=== PATIENT | female | born 1980 | race Caucasian/White ===

== ENCOUNTER 2017-10-19 19:04 | Emergency (ER) | payer OTHER, SELFPAY | END 2017-10-19 19:42 | disposition home or self-care (01) | PROVIDERS: Emergency Provider Nurse Practitioner Family; Family Provider Family Medicine; Visit Provider Nurse Practitioner Family | DX: J32.0 Chronic maxillary sinusitis (principal); Z88.3 Allergy status to other anti-infective agents; Z88.8 Allergy status to other drugs, medicaments and biological substances | CPT/HCPCS: 87804; 99201 ==

== ENCOUNTER → 2017-11-24 15:50 | Outpatient (CLI) | payer OTHER, SELFPAY ==
[2017-11-24 16:13] LABS: Basophils % 0.6 % (0.1-2.0); Eosinophils # 0.1 K/mm3 (0.0-0.4); Eosinophils % 1.4 % (0.1-12.0); Hematocrit 44.5 % (37.0-47.0); Lymphocytes # 1.7 K/mm3 (0.7-4.5); Lymphocytes % 25.1 K/mm3 (10-50); Mean Corpuscular HGB Conc 33.6 g/dL (31.8-35.4); Mean Corpuscular Hemoglobin 30.1 pg (27.0-31.2); Mean Corpuscular Volume 89.5 fl (81-99); Monocytes # 0.4 K/mm3 (0.1-1.0); Monocytes % 5.7 % (1.7-9.3); Neutrophils # 4.5 K/mm3 (1.8-7.8); Neutrophils % 67.2 % (37.0-80.0); Platelet Count 293 K/mm3 (142-424); Red Blood Count 4.97 M/mm3 (4.20-5.40); Red Cell Distribution Width 12.8 % (11.5-17.5); White Blood Count 6.7 K/mm3 (4.8-10.8)
[2017-11-24 19:31] LABS: Alanine Aminotransferase 27 U/L (12-78); Albumin Level 4.2 gm/dL (3.4-5.0); Albumin/Globulin Ratio 1.3 (1.1-1.8); Alkaline Phosphatase 59 U/L (46-116); Anion Gap 12.1 mEq/L (5-15); Aspartate Amino Transferase 21 U/L (15-37); Bilirubin,Total 0.3 mg/dL (0.2-1.0); Blood Urea Nitrogen 11 mg/dL (7-18); Calcium 8.8 mg/dL (8.5-10.1); Carbon Dioxide 28 mmol/L (21.0-32.0); Chloride 102 mmol/L (98-107); Creatinine,Serum 0.82 mg/dL (0.55-1.02); Estimated Glomerular Filt Rate 79 ml/min (>60); GFR (African American) 96 ML/MIN (>60); Globulin 3.2 gm/dl (1.3-3.2); Glucose 71 mg/dL (74-106); Potassium 4.1 mmoL/L (3.5-5.1); Sodium 138 mmol/L (136-145); Thyroid Stimulating Hormone 3.45 uIU/ml (0.358-3.740); Total Protein,Serum 7.4 gm/dL (6.4-8.2)
== END ==
PROVIDERS: PCP Family Medicine; Visit Provider Physician Assistant
DX: R07.9 Chest pain, unspecified (principal); R53.83 Other fatigue; I10 Essential (primary) hypertension
CPT/HCPCS: 36415; 80053; 84443; 85025

== ENCOUNTER → 2019-10-17 10:54 | Outpatient (CLI) | payer OTHER, SELFPAY ==
--- NOTE | 2019-10-17 10:54 | US_ITS ---
PROCEDURE: US TRANSVAGINAL CLINICAL INDICATION: US T/V- Heavy Periods Pre ablation COMPARISON: No exams were available for comparison FINDINGS: The uterus is 9 x 4 x 5 cm with a combined endometrial thickness of 12 mm. Right ovary is 4 x 3 cm. Left ovary is 3 x 3 cm. There is a 1 cm nabothian cyst. No adnexal mass or cul-de-sac fluid. IMPRESSION: Endometrial thickness upper limits of normal with small nabothian cyst otherwise negative Dictated by: Ramo Maciel MD 10/18/2019 06:57 Electronically signed by Ramo Maciel MD in [place] 10/18/2019 06:57
== END ==
PROVIDERS: PCP Family Medicine; Visit Provider Nurse Practitioner Obstetrics & Gynecology
DX: N92.0 Excessive and frequent menstruation with regular cycle (principal)
CPT/HCPCS: 76830

== ENCOUNTER → 2019-11-16 16:58 | Outpatient (CLI) | payer OTHER, SELFPAY ==
[2019-11-16 17:15] LABS: Basophils % 0.5 % (0.1-2.0); Eosinophils # 0.1 K/mm3 (0.0-0.4); Eosinophils % 2.3 % (0.1-12.0); Hematocrit 43.2 % (37.0-47.0); Hemoglobin 14.4 g/dL (12.2-16.2); Lymphocytes # 1.7 K/mm3 (0.7-4.5); Lymphocytes % 28.3 % (10-50); Mean Corpuscular HGB Conc 33.4 g/dL (31.8-35.4); Mean Corpuscular Hemoglobin 30.7 pg (27.0-31.2); Mean Corpuscular Volume 91.9 fl (81-99); Mean Platelet Volume 7.9 fl (7.4-10.4); Monocytes # 0.3 K/mm3 (0.1-1.0); Monocytes % 5.6 % (1.7-9.3); Neutrophils # 3.9 K/mm3 (1.8-7.8); Neutrophils % 63.2 % (37.0-80.0); Platelet Count 323 K/mm3 (142-424); Red Cell Distribution Width 13.1 % (11.5-17.5); White Blood Count 6.2 K/mm3 (4.8-10.8)
[2019-11-16 17:18] LABS: Urine Pregnancy, HCG Qual. Negative (Negative)
[2019-11-16 18:29] LABS: Blood Urea Nitrogen 10 mg/dL (7-18); Calcium 8.8 mg/dL (8.5-10.1); Carbon Dioxide 29 mmol/L (21.0-32.0); Chloride 104 mmol/L (98-107); Creatinine,Serum 0.86 mg/dL (0.55-1.02); Estimated Glomerular Filt Rate 74 ml/min (>60); GFR (African American) 90 ML/MIN (>60); Glucose 68 mg/dL (74-106); Sodium 138 mmol/L (136-145)
== END ==
PROVIDERS: Visit Provider Nurse Practitioner Obstetrics & Gynecology
DX: Z01.818 Encounter for other preprocedural examination (principal); N92.0 Excessive and frequent menstruation with regular cycle
CPT/HCPCS: 36415; 80048; 81025; 85025

== ENCOUNTER → 2020-11-19 13:46 | Outpatient (CLI) | payer OTHER, SELFPAY ==
[2020-11-20 09:03] LABS: Covid-19 Nasal PCR Sendout P&C POSITIVE
== END ==
PROVIDERS: PCP Family Medicine; Visit Provider Nurse Practitioner
DX: U07.1 COVID-19 (principal)
CPT/HCPCS: U0004

== ENCOUNTER → 2023-06-11 15:26 | Outpatient (CLI) | payer OTHER, SELFPAY ==
--- NOTE | 2023-06-11 15:32 | MM_ITS ---
PROCEDURE INFORMATION: Exam: MG Bilateral Screening 3D Mammography Exam date and time: 06/11/2023 3:32 PM Age: 42 years old Clinical indication: Baseline screening mammogram TECHNIQUE: Imaging protocol: Bilateral Screening tomosynthesis and 2D mammography including computer-aided detection (CAD) when performed. COMPARISON: No relevant prior studies available. FINDINGS: MAMMOGRAPHY: Breast composition: There are scattered areas of fibroglandular density. Mass: None. Architectural distortion: No new or suspicious architectural distortion. Calcifications: No new or suspicious calcifications are present Asymmetric density: No new or suspicious asymmetric density is present Skin thickening: None. Axillary adenopathy: None. IMPRESSION: No mammographic evidence of malignancy. Recommend annual screening mammography unless otherwise clinically indicated. ASSESSMENT: BI-RADS category 1: Negative
== END ==
PROVIDERS: PCP Family Medicine; Visit Provider Nurse Practitioner Obstetrics & Gynecology
DX: Z12.31 Encounter for screening mammogram for malignant neoplasm of breast (principal)
CPT/HCPCS: 77063; 77067

== ENCOUNTER 2024-06-08 08:55 | Outpatient (CLI) | payer OTHER, SELFPAY ==
--- NOTE | 2024-06-08 08:56 | US_ITS ---
FINAL REPORT TECHNIQUE: Ultrasound images of the kidneys and bladder were obtained. CLINICAL HISTORY: I10 - Essential (primary) hypertension FINDINGS: The right kidney measures 10.7 cm in length. It is normal in echogenicity. There is no hydronephrosis. The left kidney measures 10.7 cm in length. It is normal in echogenicity. There is no hydronephrosis. The spleen is unremarkable. IMPRESSION: Unremarkable exam. Reviewed, Interpreted and Dictated by Tung Winn III, MD Transcribed by Ewa Webster Authenticated and [facility]
--- NOTE | 2024-06-08 09:05 | CA_ITS ---
FINAL REPORT TECHNIQUE: Grayscale, color Doppler and duplex Doppler ultrasound of the kidneys, aorta and renal arteries was performed. Multiple velocities were measured. CLINICAL HISTORY: Hypertension COMPARISON: None FINDINGS: Aorta velocity: 180.5 cm/sec Right kidney: 11 cm. No evidence of hydronephrosis or mass. Right intrarenal RI: 0.73 Right renal artery velocity: 192 cm/sec. Right RAR (Renal artery-Aortic Ratio): 1.06 Left Kidney: 11.4 cm. No evidence of hydronephrosis or mass. Left intrarenal RI: 0.64 Left renal artery velocity: cm/sec. Left RAR (Renal Artery-Aortic Ratio): 1.09 IMPRESSION: Less than 60% renal artery stenosis bilaterally. CT angiogram or postcontrast MR angiogram would be more sensitive for evaluation of possible renal artery stenosis. Reviewed, Interpreted and Dictated by Tung Winn III, MD Transcribed by Crystal Valladares Authenticated and [facility]
[2024-06-08 10:05] LABS: Basophils # 0.1 K/mm3 (0-0.2); Basophils % 1.1 % (0.1-2.0); Eosinophils # 0.2 K/mm3 (0.0-0.4); Hematocrit 45.2 % (37.0-47.0); Hemoglobin 15.4 g/dL (12.2-16.2); Lymphocytes # 1.2 K/mm3 (0.7-4.5); Lymphocytes % 26.1 % (10-50); Mean Corpuscular HGB Conc 34.1 g/dL (31.8-35.4); Mean Corpuscular Hemoglobin 31.9 pg (27.0-31.2); Mean Corpuscular Volume 93.7 fl (81-99); Mean Platelet Volume 8.1 fl (7.4-10.4); Monocytes # 0.2 K/mm3 (0.1-1.0); Monocytes % 5.4 % (1.7-9.3); Neutrophils # 2.8 K/mm3 (1.8-7.8); Neutrophils % 63.4 % (37.0-80.0); Platelet Count 343 K/mm3 (142-424); Red Blood Count 4.82 M/mm3 (4.20-5.40); Red Cell Distribution Width 13.5 % (11.5-17.5); White Blood Count 4.5 K/mm3 (4.8-10.8)
[2024-06-08 10:44] LABS: Albumin Level 4.4 g/dl (3.5-5.0); Chloride 103 mmol/L (98-107)
[2024-06-08 10:45] LABS: Potassium 3.7 mmoL/L (3.5-5.1); Sodium 139 mmol/L (136-145)
[2024-06-08 10:47] LABS: Alanine Aminotransferase 26 U/L (12-78); Anion Gap 8.7 mEq/L (5-15); Aspartate Amino Transferase 32 U/L (14-36); Bilirubin,Unconjugated 0.3 mg/dL (0.0-1.1); Blood Urea Nitrogen 12 mg/dl (7-17); Carbon Dioxide 31 mmol/L (22.0-30.0); Estimated Glomerular Filt Rate 61 ml/min (>60); GFR (African American) 74 ML/MIN (>60)
[2024-06-08 10:48] LABS: Alkaline Phosphatase 51 U/L (38-126); Bilirubin,Direct 0.3 mg/dl (0.0-0.4); Bilirubin,Indirect 0.3 mg/dL (0.0-0.9); Bilirubin,Total 0.6 mg/dl (0.2-1.3); Calcium 8.9 mg/dl (8.4-10.2); Cholesterol 153 mg/dl (140-200); Glucose 102 mg/dl (74-100); HDL Cholesterol 38 mg/dl (40-60); Magnesium 1.8 mg/dl (1.6-2.3); Total Protein,Serum 7.1 g/dl (6.3-8.2); Triglycerides 113 mg/dl (30-150); VLDL Cholesterol 23 mg/dL (0-40)
[2024-06-08 10:59] LABS: Direct LDL Cholesterol 86.44 mg/dL (100-129)
[2024-06-08 11:17] LABS: Thyroid Stimulating Hormone 1.98 uIU/mL (0.465-4.68)
[2024-06-13 14:09] LABS: Dopamine, Plasma < 30 pg/mL (0-48); Epinephrine, Plasma 20 pg/mL (0-62); Norepinephrine, Plasma 836 pg/mL (0-874)
[2024-06-20 18:09] LABS: Metanephrine Plasma < 25.0 pg/mL (0.0-88.0); Normetanephrine Plasma 77.6 pg/mL (0.0-218.9)
[2024-06-22 15:42] LABS: Renin Activity, Plasma 44.882
== END 2024-06-08 23:59 | disposition home or self-care (01) ==
LOC: RAD 08:56
PROVIDERS: Nurse Practitioner Family; PCP Physician Assistant; Visit Provider Physician Assistant
DX: I10 Essential (primary) hypertension (principal)
CPT/HCPCS: 36415; 76770; 80048; 80061; 80076; 82088; 82384; 83735; 83835; 84244; 84439; 84443; 85025; 93976

== ENCOUNTER 2024-06-10 11:06 | Outpatient (CLI) | payer OTHER, SELFPAY ==
[2024-06-17 04:44] LABS: Metanephrine, U,24hr 49 ug/24 hr (36-209); Metanephrine, Ur 81 ug/L (Undefined); Normetanephr.,U,24h 183 ug/24 hr (131-612); Normetanephrine, Ur 305 ug/L (Undefined)
[2024-06-17 09:10] LABS: Dopamine, Ur, 24hr 123 ug/24 hr (0-510); Dopamine, Urine 205 ug/L (Undefined); Epinephrine, U, 24hr <2 ug/24 hr (0-20); Epinephrine, Urine <3 ug/L (Undefined); Norepinephrine, Ur 43 ug/L (Undefined); Norepinephrine,U,24h 26 ug/24 hr (0-135); VMA, Urine 3.4 mg/L (Undefined)
== END 2024-06-10 23:59 | disposition home or self-care (01) ==
LOC: LAB.DROPOF 11:06
PROVIDERS: PCP Family Medicine; Visit Provider Nurse Practitioner Family
DX: I10 Essential (primary) hypertension (principal)
CPT/HCPCS: 82384; 83835; 84585

== ENCOUNTER 2024-07-12 07:35 | Outpatient (CLI) | payer OTHER, SELFPAY ==
--- NOTE | 2024-07-12 07:35 | NM_ITS ---
APPROVED REPORT Exam: Nuclear Stress Test Indication: Fatigue, HTN, Family history Patient Location: Outpatient Stress Tech: Geeta Yancey NM Tech:Sofi Peralta, ARRT, RT (R)(N) Ht: 5 ft 8 in Wt: 320 lbs Bra Size: 44C HR: 62 bpm BP: 153/75 mmHg BSA: 2.50 m2 TID: 1.50 BMI: 48.6 History: Fatigue, HTN, Family history Procedure: Patient received 0.4 mg of intravenous Lexiscan, resting heart rate 62 bpm, resting blood pressure 153/75 mmHg, with Lexiscan maximum heart rate achieved was 98 bpm which is % of the maximum predicted heart rate and blood pressure was 176/104 mmHg. With Lexiscan, patient denied any complaint of chest pain. Cardiac Stress and Resting SPECT Images: Cardiac Stress and Resting SPECT images were obtained using technetium 99m Myoview 32.1 mCi stress and 10.22 mCi at rest. Technically difficult study due to significant soft tissue overlap with the cardiac borders. This may affect the diagnostic interpretation of the study findings. Resting and stress imaging in supine positions demonstrate a medium sized, moderate, fixed perfusion defect in the anterior LV wall. This is no longer visualized with prone stress imaging. Findings are suggestive of soft tissue attenuation. There is increase in transient ischemic dilatation ratio (TID 1.50), suggestive of possible multivessel disease or balanced ischemia. Gated imaging demonstrates normal global and regional LV systolic function. LVEF is calculated at 61%. Conclusion: Soft tissue attenuation is present. No clear evidence of fixed or reversible perfusion defects. Increase in transient ischemic dilatation ratio (TID 1.50), suggestive of possible multivessel disease or balanced ischemia. Gated imaging demonstrates normal global and regional LV systolic function. LVEF is calculated at 61% In the setting of young age, presence of TID, and normal LV function, further evaluation noninvasively with CCTA suggested prior to proceeding with invasive coronary angiography. Electronically signed by : Mine Almeida MD 07/13/2024 12:06:40
--- NOTE | 2024-07-12 07:35 | CA_ITS ---
APPROVED REPORT Exam: Pharmacologic Technologist: Geeta Fletcher, Ht: 5 ft 8 in Wt: 318 lbs BSA: 2.49 m2 HR: 60 bpm BP: 153/75 mmHg Medical History Medications: Amlodipine,,,,, Hydralazine,,,,, Propranolol,,,,, Valsartan,,,,, CHlorthalidone,,,,, Potassium Chloride ER,,,,, Stress Test Details Test: LEXISCAN Reason for pharmacologic stress test: physical limitation. HR Resting HR: 62 bpm Max Heart Rate (APMHR): 179 bpm Max HR Achieved: 98 bpm Target HR (85% APMHR): 152 bpm % of APMHR: 55 Recovery HR: 78 bpm BP Resting BP: 153.0/75.0 mmHg Max BP: 176.0/104.0 mmHg Recovery BP: 176.0/104.0 mmHg ECG Resting ECG: SR Stress ECG: No significant ST changes Arrhythmia: PVCs Clinical Exercise duration: 04:00 min Highest Stage Achieved: Stress ECG Conclusion Symptoms: Chest pain, Dyspnea, nausea. Arrhythmias/Ectopy: PVC ST-T Changes: No significant ST changes Conclusion: EKG unremarkable, normal Lexiscan infusion. Myoview images reported separately. Test Summary REST . . . . . . . Resting REST 01:35 . . 62 . 153/ 75 . . Stage 1 . . . . . . . Myoview Injected Stage 1 01:00 . . 90 . . . . Stage 2 01:00 . . 85 . . . . Stage 3 01:00 . . 80 . 155/ 76 . . Stage 4 01:00 . . 78 . . . Stop exercise at 04:00 RECOVERY 01:00 . . 78 . . . . RECOVERY 02:00 . . 78 . 154/ 87 . . RECOVERY 03:00 . . 71 . 154/ 87 . . RECOVERY 04:00 . . 72 . 168/106 . . RECOVERY 04:47 . . 79 . 176/104 . . Electronically signed by : Mine Almeida MD 07/13/2024 12:04:43
--- NOTE | 2024-07-12 07:35 | CA_ITS ---
APPROVED REPORT EXAM: Comprehensive 2D, Doppler, and color-flow Echocardiogram Regional Sales Leader: Isabella Perez RVT Ht: 5 ft 8 in Wt: 318lbs BSA: 2.49 BP: 126/67 mmHg Indications: SOA,HTN,EDEMA,CAD,EX SMOKER 2D Dimensions LA Volume 73.50 mL LA Volume Index 29.52 mL/m2 (M/F) 16-34 M-Mode Dimensions RVDd 2.68 cm (0.9-2.6) LA Diam 3.39 cm (1.9-4.0) LVDd 4.38 cm (3.5-5.7) LVDs 3.13 cm (3.5-5.7) IVSd 0.89 cm (0.6-1.1) PWd 0.76 cm (0.6-1.1) EF (Teich) 55.30% FS 28.50% EDV (Teich) 86.80 mL TAPSE 2.82 (<1.7) ESV (Teich) 38.80 mL LV Diastology E Decel Time 150 (160-240 msec) E/A Ratio 1.4 Aortic Valve KAIT Index 1.24 cm2/m2 AoV Peak Lopez. 156.0 (50-130 cm/s) AO Peak GR. 9.80 mmHg AO Mean GR. 4.40 (<5 mmHg) AO VTI 33.4 (18-25 cm) KAIT (VTI) 3.15 (2.5-4.5 cm2) Mitral Valve MV E Max Lopez. 104.0 (40-130 cm/s) MV A Velocity 76.0 (40-130 cm/s) E/A Ratio 1.36 MV PHT 44.0 ms Pulmonary Valve PV Peak Velocity 68.0 (50-150 cm/s) Tricuspid Valve TR P. Velocity 289.00 cm/s RAP Estimate 10.00 mmHg RVSP 43.30 mmHg Left Ventricle The left ventricle is normal size. The left ventricular systolic function is normal. The left ventricular ejection fraction is within the normal range. There is normal left ventricular wall thickness. There is normal LV segmental wall motion. The left ventricular diastolic function is normal. LVEF is 55%. Right Ventricle The right ventricle is normal size. The right ventricular systolic function is normal. Atria The left atrium size is normal. The right atrium size is normal. There is no Doppler evidence of interatrial shunt. Aortic Valve The aortic valve opens well. There is no aortic valvular stenosis. No aortic regurgitation is present. Mitral Valve The mitral valve is normal in structure. No evidence of mitral valve stenosis. Mild mitral regurgitation. Tricuspid Valve Tricuspid valve is grossly normal in structure and function. Mild tricuspid regurgitation. RVSP is 30???35 mmHg. Pulmonic Valve The pulmonary valve is normal in structure. Trace pulmonic regurgitation. Great Vessels The aortic root is normal in size. The ascending aorta is not well-visualized. IVC is normal in size and collapses >50% with inspiration. Pericardium There is no pericardial effusion. Other Information Study Quality: Fair Conclusion Normal biventricular systolic function. Mild TR, mild MR. RVSP 30-35 mmHg. Electronically signed by : Mine Almeida MD 07/17/2024 21:00:26
[2024-07-12] MEDS: SODIUM CHLORIDE 0.9% 10ML SYR (RAD ONLY) 10 ML IV ×2 (09:04)
[2024-07-12] MEDS: REGADENOSON 0.4MG/5ML SYRINGE 0.4 MG IV (09:04)
[2024-07-12] MEDS: ISOTOPE MYOVIEW (PER STUDY) 1 DOSE IV (09:05)
== END 2024-07-12 23:59 | disposition home or self-care (01) ==
PROVIDERS: PCP Family Medicine; Visit Provider Nurse Practitioner
DX: R06.09 Other forms of dyspnea (principal); I10 Essential (primary) hypertension
CPT/HCPCS: 78452; 93017; 93018; 93306; A9502; J2785

== ENCOUNTER 2024-07-28 07:17 | Outpatient (CLI) | payer OTHER, SELFPAY ==
--- NOTE | 2024-07-28 07:18 | CT_ITS ---
APPROVED REPORT Assistant Sales Center Manager: CLINICAL INDICATION Chest Pain TECHNIQUE Image Acquisition: A 128 slice MDCT scanner (ColorPlazaa View) was used for data acquisition. A noncontrast coronary calcium scan was performed. A CT attenuation threshold of 130 Hounsfield units (HU) was used for the detection of calcium in contiguous voxels of 1 sq mm in area to be counted as individual lesions. Bolus tracking in the ascending aorta with a threshold of 180 HU was performed. Immediately afterwards, ECG synchronized cardiac CT was then performed from the cardiac base to apex using retrospective gating with ECG tube current modulation. A total of 85 mL of Isovue 370 mg/mL contrast medium was administered at 5 mL/sec followed by a saline flush using a biphasic injection protocol. A tube voltage of 120 KVp was used. The patient received the following medications prior to the cardiac CT. 75 mg of oral metoprolol 15 mg of oral ivabradine 0.8 mg of sublingual nitroglycerin The average heart rate at the time of acquisition was 62 bpm and regular. Image Reconstruction Transaxial images were reconstructed at 0.67 mm slide thickness. Data was reviewed interactively on an advanced workstation capable of 2 and 3-dimensional displays in all conventional reconstruction formats, including multiplanar reformations, maximum intensity projections, curved multiplanar reformations, and volume rendered reconstructions. When applicable, selected routine images describing the relevant coronary anatomy and pathology were saved and sent to PACS. Complications None Technical Quality Overall image quality was good. Coronary artery opacification was adequate. Total DLP (Dose-Length Product) is 2276.6 mGy-cm. The reported value represents the total of one or more individual components during the CT acquisition of this date and at this time, and as such, the same value may appear in more than one CT report depending on the interpreting/reporting physicians. COMPARISON None FINDINGS CT Coronary Calcium Scoring LMA (Left Main Artery) = 0 LAD (Left Anterior Descending) = 0 LCX (Left Coronary Circumflex) = 0 RCA (Right Coronary Artery) = 0 Total Calcium Score = 0 using the AJ-130 method. The interpretation of the calcium heart score is based on the following continuum*: 0 = no calcified plaque detected (risk of coronary artery disease is very low ??? less than 5%) 1-10 = calcium detected in extremely minimal levels (risk of coronary diseases is still low ??? less than 10%) 11-100 = mild levels of plaque detected with certainty (mild or minimal narrowing of heart arteries is likely) 101-400 = definite,at least moderate levels of plaque detected (relatively high risk of a heart attack within 3-5 years) >401-999 = extensive levels of plaque detected (high risk of heart attack, high levels of vascular disease are present, high likelihood of at least one significant coronary narrowing) *The calcium heart score quantifies the burden of coronary calcification/plaque in the coronary arteries. The calcium heart score is not able to evaluate the presence or burden of non-calcified (i.e. soft) plaque. There is no identifiable calcification in the aortic valve, mitral annulus or mitral valve, pericardium, or myocardium. Coronary CT Angiography The coronary arterial system is right dominant. Quantitative Stenosis Grading: Left Main (LM): The left main originates normally from the left sinus of Valsalva. The LM bifurcates into the left anterior descending artery and left circumflex artery. The LM is patent with no evidence of atherosclerosis. Left Anterior Descending (LAD) and Diagonal Branches: The LAD gives off 2 diagonal branch(es). The LAD and its branches are patent with no evidence of atherosclerosis. There is no evidence of LAD-myocardial bridge. Left Circumflex (LCX) and Obtuse Marginals (OM): The LCX gives off 1 Obtuse Marginal (OM) branch(es). The LCX and its branches are patent with no evidence of atherosclerosis. Right Coronary Artery (RCA): The RCA originates normally from the right sinus of Valsalva. The RCA gives off a posterior descending artery (PDA) and posterolateral (PL) branches. The RCA and its branches are patent with no evidence of atherosclerosis. Non-Coronary Cardiac Findings: Analysis of the left ventricular (LV) structure and function was performed after 3-D reconstruction of the LV from axial images, with user-corrected automatic contouring for assessment of LV volumes and user-defined reconstruction from oblique planes for measurement of 3-D cardiac structure and function. -The left ventricle systolic function is normal. -There is no left atrial appendage filling defect. Two right pulmonary veins and two left pulmonary veins drain normally into the left atrium. -No pericardial thickening or calcification. -Central and branch pulmonary arteries in the [id number] are unremarkable. -Thoracic aorta within the visualized thoracic aortic-branches in the [id number] is unremarkable. Extracardiac Structures No significant extra-cardiac findings. Note, however, that this study is focused on the cardiac findings. IMPRESSION -No coronary calcification with an Agatston score = 0 using the AJ-130 method. -No evidence of significant flow-limiting atherosclerosis of the coronary arteries. -No evidence of coronary anomalies or myocardial bridges. -CAD-RADS 0. Management recommendations per ACC/AHA guidelines*, as clinically appropriate. *Recommendations: CAD RADS 0: Reassurance. Consider non-atherosclerotic causes of chest pain. CAD RADS 1: Consider non-atherosclerotic causes of chest pain. Consider preventive therapy and risk factor modification. CAD RADS 2: Consider non-atherosclerotic causes of chest pain. Consider preventive therapy and risk factor modification, particularly for patients with nonobstructive plaque in multiple segments. CAD RADS 3: Consider further functional testing. Consider symptom-guided anti-ischemic and preventive pharmacotherapy as well as risk factor modification per published guideline statements. CAD RADS 4A: Consider further functional testing or invasive coronary angiography with revascularization per published guideline statements. Consider symptom-guided anti-ischemic and preventive pharmacotherapy as well as risk factor modification per published guideline statements. CAD RADS 4B: Invasive coronary angiography recommended with revascularization per published guideline statements. Consider symptom-guided anti-ischemic and preventive pharmacotherapy as well as risk factor modification per published guideline statements. CAD RADS 5: Consider invasive angiography and/or viability assessment with revascularization per published guideline statements. Consider symptom-guided anti-ischemic and preventive pharmacotherapy as well as risk factor modification per published guideline statements. CRITICAL RESULT None COMMUNICATION Per this written report The coronary and cardiac findings of this CCTA were reviewed, reported, and signed by Jamshid Almeida MD (Supervisor [employer]) Conclusion Electronically signed by : Mine Almeida MD 07/28/2024 16:39:03
[2024-07-28 07:37] VITALS: BMI 62.4
[2024-07-28 07:44] VITALS: BP 151/58; PULSE 66; RESP 18; O2SAT 97
[2024-07-28] MEDS: IVABRADINE HCL 7.5MG TABLET PO (07:44)
[2024-07-28] MEDS: METOPROLOL TARTRATE 50MG TABLET PO (07:48)
[2024-07-28 07:59] LABS: Chloride 103 mmol/L (98-107)
[2024-07-28 08:00] LABS: Potassium 3.5 mmoL/L (3.5-5.1); Sodium 138 mmol/L (136-145)
[2024-07-28 08:02] LABS: Blood Urea Nitrogen 13 mg/dl (7-17); Creatinine Clearance Estimated 58 mL/min (50-200); Estimated Glomerular Filt Rate 69 ml/min (>60); GFR (African American) 83 ML/MIN (>60)
[2024-07-28 08:03] LABS: Anion Gap 5.5 mEq/L (5-15); Calcium 9.2 mg/dl (8.4-10.2); Carbon Dioxide 33 mmol/L (22.0-30.0); Glucose 107 mg/dl (74-100)
[2024-07-28 08:13] LABS: HCG Qualitative, Serum Negative (Negative)
[2024-07-28 08:45] VITALS: BP 134/91; PULSE 62; O2SAT 98
[2024-07-28] MEDS: NITROGLYCERIN 0.4MG SL TABLET SL (08:46)
[2024-07-28 08:47] VITALS: BP 102/54; PULSE 67; O2SAT 100
[2024-07-28 08:50] VITALS: BP 102/60; PULSE 63; O2SAT 98
[2024-07-28] MEDS: SODIUM CHLORIDE 0.9% 10ML SYR (RAD ONLY) 10 ML IV (08:59)
[2024-07-28] MEDS: 0.9 % SODIUM CHLORIDE 50 ML VIAL IV (08:59)
[2024-07-28] MEDS: IOPAMIDOL-370 (76%);100ML BOTTLE 85 ML IV (08:59)
== END 2024-07-28 09:00 | disposition home or self-care (01) ==
PROVIDERS: PCP Family Medicine; Visit Provider Nurse Practitioner
DX: R07.9 Chest pain, unspecified (principal); Z82.49 Family history of ischemic heart disease and other diseases of the circulatory system; I10 Essential (primary) hypertension
CPT/HCPCS: 75574; 80048; 84703; Q9967

== ENCOUNTER 2025-02-07 14:45 | Outpatient (CLI) | payer OTHER, SELFPAY ==
--- NOTE | 2025-02-07 14:45 | US_ITS ---
PROCEDURE INFORMATION: Exam: US Left Breast, Complete Exam date and time: 02/07/2025 2:47 PM Age: 44 years old Clinical indication: Callback for a left breast focal asymmetry TECHNIQUE: Imaging protocol: Complete ultrasound of all four quadrants of the left breast and the retroareolar regions, including ultrasound of the axilla when performed. COMPARISON: VERONICA ABIGAIL DIGITAL SCREEN BILATERAL 01/18/2025 2:35 PM FINDINGS: ULTRASOUND: Breast ultrasound findings: Scanning of the left breast in the retroareolar aspect demonstrates no underlying mass, shadowing, or distortion. No abnormality in the left upper inner quadrant to correlate to the asymmetry. There is a benign lipoma at the 9 o'clock axis, 2 cm from the nipple measuring 3 cm. No axillary adenopathy. IMPRESSION: No sonographic evidence of malignancy. Annual mammographic screening is recommended unless otherwise clinically indicated. ASSESSMENT: BI-RADS Category 2: Benign.
--- NOTE | 2025-02-07 15:15 | MM_ITS ---
PROCEDURE INFORMATION: Exam: MG Left Diagnostic Breast Tomosynthesis Exam date and time: 02/07/2025 3:49 PM Age: 44 years old Clinical indication: Patient recalled on the basis of a screening mammogram for further evaluation; Left breast; Focal asymmetry in the left breast TECHNIQUE: Imaging protocol: Left Diagnostic tomosynthesis and 2D mammography including computer-aided detection (CAD) when performed. Unilateral or bilateral exam. COMPARISON: 1. MG VERONICA ABIGAIL DIGITAL SCREEN BILATERAL 01/18/2025 2:35 PM 2. MG MM DIG SCREENING MAMM BI W/CAD 06/11/2023 3:32 PM FINDINGS: MAMMOGRAPHY: Breast composition: There are scattered areas of fibroglandular density. Breast mammogram findings: Digital diagnostic spot compression views of the left breast and 90 degree lateral view of the left breast demonstrate normal overlapping fibroglandular structures without persistent mass or asymmetry identified. IMPRESSION: No mammographic evidence of malignancy. Annual bilateral mammographic screening is recommended unless otherwise clinically indicated. ASSESSMENT: BI-RADS Category 1: Negative.
== END 2025-02-07 23:59 | disposition home or self-care (01) ==
LOC: RAD 14:46
PROVIDERS: PCP Family Medicine; Visit Provider Nurse Practitioner Obstetrics & Gynecology
DX: R92.8 Other abnormal and inconclusive findings on diagnostic imaging of breast (principal)
CPT/HCPCS: 76641; 77061; 77065; G0279